=== PATIENT | male | born 1955 | race Caucasian/White ===

== ENCOUNTER → 2021-01-02 | Outpatient (CLI) | payer MEDICARE, OTHER ==
[~2021-01-02] MED LIST: DIATRIZOATE MEGL/DIATRIZOA SOD 120 ML BTL PO ONE
== END ==
LOC: DX 09:22
PROVIDERS: ATTEND Surgery
DX: K57.20 Diverticulitis of large intestine with perforation and abscess without bleeding (principal)
CPT/HCPCS: 74280; Q9963

== ENCOUNTER 2021-01-15 09:16 | Inpatient (IN) | payer MEDICARE, OTHER ==
[2021-01-11 15:51] LABS: BASOPHILS # (AUTO) 0.1 (0.0-0.1); EOSINOPHILS # (AUTO) 0.3 (0.0-0.4); EOSINOPHILS % 2.6 % (0.0-6.0); HEMATOCRIT 30.5 % (38.2-49.6); HEMOGLOBIN 9.8 g/dL (14.0-18.0); LYMPHOCYTES # (AUTO) 2.9 (1.0-3.2); LYMPHOCYTES % 28.1 % (18.0-39.1); MEAN CORPUSCULAR HEMOGLOBIN 31.9 pg (28-32); MEAN CORPUSCULAR HGB CONC 32.1 g/dL (31-35); MEAN CORPUSCULAR VOLUME 99.3 fL (81-99); MONOCYTES % 9.8 % (4.4-11.3); NEUTROPHILS # (AUTO) 5.9 (2.1-6.9); NEUTROPHILS % 57.4 % (38.7-80.0); PLATELET COUNT 271 x10e3/uL (140-360); RED BLOOD COUNT 3.07 x10e6/uL (4.3-5.7); RED CELL DISTRIBUTION WIDTH 16.5 % (11.7-14.4)
[2021-01-11 16:08] LABS: ANION GAP 14.1 mmol/L (8-16); CREATININE, SERUM 1.15 mg/dL (0.72-1.25); POTASSIUM 4.1 mmol/L (3.5-5.1)
[~2021-01-15] VITALS: Ht 167.6 cm; Wt 77.6 kg
[~2021-01-15 09:16] MED LIST changes: -DIATRIZOATE MEGL/DIATRIZOA SOD 120 ML BTL PO ONE; +ELIQUIS2.5 MG PO; +WARFARIN SODIU2.5 MG PO
[2021-01-15] MEDS ORDERED: CEFOXITIN 1GM/0.9% NS 50ML 100 ML IV ONE (10:45)
[2021-01-15] MEDS ORDERED: AMIODARONE HCL200 MG PO (10:52)
[2021-01-15] MEDS ORDERED: PEPCID20 MG PO (10:53)
[2021-01-15] MEDS ORDERED: TYLENOL PM (10:54)
[2021-01-15] MEDS ORDERED: BUPIVACAINE HCL 0.5% INJ 30 ML VIAL INJ ONE (11:02)
[2021-01-15 11:15] LABS: INR 0.95; PROTHROMBIN TIME 13.3 seconds (11.9-14.5)
[2021-01-15 11:16] LABS: PARTIAL THROMBOPLASTIN TIME 28.5 seconds (23.8-35.5)
[2021-01-15] MEDS ORDERED: SEVOFLURANE INHAL SOLN 250 ML PEN BTL ONE (11:45)
[2021-01-15] MEDS ORDERED: DEXAMETHASONE SOD PHOS INJ 4 MG/ML VIAL ONE (11:45)
[2021-01-15] MEDS ORDERED: EPHEDRINE SULFATE INJ 50 MG/ML VIAL ONE (11:45)
[2021-01-15] MEDS ORDERED: PROPOFOL IV EMULSION 10 MG/ML 20 ML VIAL ONE (11:45)
[2021-01-15] MEDS ORDERED: POVIDONE IODINE 0.05% 0.05 % ML PO ONE (11:45)
[2021-01-15] MEDS ORDERED: GLYCOPYRROLATE INJ 0.2 MG/ML VIAL ONE (11:45)
[2021-01-15] MEDS ORDERED: LIDOCAINE HCL 2% LOCAL INJ 5 ML SDV VIAL INJ ONE (11:45)
[2021-01-15] MEDS ORDERED: NEOSTIGMINE 1 MG/ML 10ML VIAL ONE (11:45)
[2021-01-15] MEDS ORDERED: ONDANSETRON HCL INJ 2MG/ML 2ML 2 MG/ML VIAL ONE (11:45)
[2021-01-15] MEDS ORDERED: ROCURONIUM BROMIDE 10 MG/ML 5ML VIAL IV ONE (11:45)
[2021-01-15] MEDS ORDERED: NALOXONE HCL INJ 0.4 MG/ML AMP IV PRN (12:30)
[2021-01-15] MEDS: SODIUM CHLORIDE 0.9% 1000ML 1,000 ML IV SCH ×2 (12:30→22:45)
[2021-01-15] MEDS ORDERED: MORPHINE SULFATE 1 MG/ML 30ML PCA IV PRN (12:30)
[2021-01-15] MEDS ORDERED: DIPHENHYDRAMINE HCL 25 MG CAP PO PRN (12:30)
[2021-01-15] MEDS ORDERED: ACETAMINOPHEN 1000 MG/100 ML IV PRN (12:30)
[2021-01-15] MEDS ORDERED: FENTANYL CITRATE/PF 100MCG/2 ML INJ ONE (12:31)
[2021-01-15] MEDS ORDERED: MIDAZOLAM HCL 2 MG/2 ML VIAL ONE (12:31)
[2021-01-15 14:18] VITALS: BP 142/80
[2021-01-15 14:34] VITALS: BP 142/80
[2021-01-15 14:43] VITALS: BP 142/80
[2021-01-15 15:49] VITALS: BP 133/80
[2021-01-15] MEDS: FAMOTIDINE 20 MG TAB PO SCH (17:22)
[2021-01-15 20:00] VITALS: BP 37/75
[2021-01-15] MEDS: MELATONIN 3 MG TAB PO PRN (22:40)
[2021-01-16] VITALS: BP 111/70
[2021-01-16 04:00] VITALS: BP 123/75
[2021-01-16 05:00] LABS: BASOPHILS # (AUTO) 0.1 (0.0-0.1); BASOPHILS % 0.3 % (0.0-1.0); HEMATOCRIT 29.8 % (38.2-49.6); HEMOGLOBIN 9.9 g/dL (14.0-18.0); LYMPHOCYTES # (AUTO) 1.9 (1.0-3.2); LYMPHOCYTES % 13.3 % (18.0-39.1); MEAN CORPUSCULAR HEMOGLOBIN 32.9 pg (28-32); MEAN CORPUSCULAR HGB CONC 33.2 g/dL (31-35); MONOCYTES % 6.9 % (4.4-11.3); NEUTROPHILS # (AUTO) 11.4 (2.1-6.9); NEUTROPHILS % 78.7 % (38.7-80.0); PLATELET COUNT 234 x10e3/uL (140-360); RED BLOOD COUNT 3.01 x10e6/uL (4.3-5.7); RED CELL DISTRIBUTION WIDTH 16.4 % (11.7-14.4)
[2021-01-16 05:33] LABS: ANION GAP 12.5 mmol/L (8-16); CALCIUM 8.4 mg/dL (8.4-10.2); CREATININE, SERUM 0.94 mg/dL (0.72-1.25); POTASSIUM 4.5 mmol/L (3.5-5.1)
[2021-01-16 08:27] VITALS: BP 118/69
[2021-01-16] MEDS: FAMOTIDINE 20 MG TAB PO SCH ×2 (08:30→16:28)
[2021-01-16 08:44] VITALS: BP 118/69
[2021-01-16] MEDS: AMIODARONE HCL 200 MG TAB PO SCH (09:00)
[2021-01-16 13:43] VITALS: BP 115/69
[2021-01-16] MEDS: HYDROCODONE/APAP 5MG-325MG TAB PO PRN (15:29)
[2021-01-16] MEDS: SODIUM CHLORIDE 0.9% 1000ML 1,000 ML IV SCH ×2 (16:20→16:32)
[2021-01-16] MEDS: ONDANSETRON HCL INJ 2MG/ML 2ML 2 MG/ML VIAL IV PRN (16:25)
[2021-01-16 16:42] VITALS: BP 116/67
[2021-01-16] MEDS: KETOROLAC TROMETHAMINE 30 MG/ML VIAL IV PRN (17:55)
[2021-01-16] MEDS: MELATONIN 3 MG TAB PO PRN (23:05)
[2021-01-17] MEDS: ONDANSETRON HCL INJ 2MG/ML 2ML 2 MG/ML VIAL IV PRN ×2 (00:15→06:17)
[2021-01-17] MEDS: KETOROLAC TROMETHAMINE 30 MG/ML VIAL IV PRN ×2 (02:00→08:35)
[2021-01-17 04:00] VITALS: BP 120/73
[2021-01-17] MEDS: SODIUM CHLORIDE 0.9% 1000ML 1,000 ML IV SCH ×2 (06:30→22:27)
[2021-01-17] MEDS: FAMOTIDINE 20 MG TAB PO SCH ×2 (07:30→16:30)
[2021-01-17 08:38] VITALS: BP 120/73
[2021-01-17] MEDS: AMIODARONE HCL 200 MG TAB PO SCH (09:00)
[2021-01-17 09:40] VITALS: BP 157/87
[2021-01-17 13:35] VITALS: BP 133/83
[2021-01-17 16:33] VITALS: BP 136/83
[2021-01-17] MEDS: MORPHINE SULFATE INJ 4 MG/ML INJ 1ML IV PRN ×2 (18:36→22:54)
[2021-01-17 20:25] VITALS: BP 145/92
[2021-01-18] VITALS (8 sets, daily range): BP systolic 123–152; BP diastolic 84–96
[2021-01-18] MEDS: SODIUM CHLORIDE 0.9% 1000ML 1,000 ML IV SCH ×3 (02:14→16:28)
[2021-01-18] MEDS: FAMOTIDINE 20 MG TAB PO SCH ×2 (04:00→16:28)
[2021-01-18] MEDS: HYDROCODONE/APAP 5MG-325MG TAB PO PRN ×2 (04:15→18:40)
[2021-01-18] MEDS: AMIODARONE HCL 200 MG TAB PO SCH (09:00)
[2021-01-18] MEDS: MORPHINE SULFATE INJ 4 MG/ML INJ 1ML IV PRN (22:29)
[2021-01-19] VITALS (8 sets, daily range): BP systolic 138–147; BP diastolic 79–88
[2021-01-19] MEDS: ONDANSETRON HCL INJ 2MG/ML 2ML 2 MG/ML VIAL IV PRN ×2 (04:14→13:20)
[2021-01-19] MEDS: MORPHINE SULFATE INJ 4 MG/ML INJ 1ML IV PRN ×3 (04:14→20:09)
[2021-01-19] MEDS: SIMETHICONE 80 MG CHEW PO PRN (04:46)
[2021-01-19] MEDS: FAMOTIDINE 20 MG TAB PO SCH ×2 (07:30→16:30)
[2021-01-19] MEDS: AMIODARONE HCL 200 MG TAB PO SCH (08:56)
[2021-01-19] MEDS: SODIUM CHLORIDE 0.9% 1000ML 1,000 ML IV SCH ×2 (10:36→18:30)
[2021-01-19] MEDS: HYDROCODONE/APAP 5MG-325MG TAB PO PRN (17:17)
[2021-01-20] VITALS (7 sets, daily range): BP systolic 118–146; BP diastolic 76–84
[2021-01-20] MEDS: FAMOTIDINE 20 MG TAB PO SCH ×2 (07:30→15:59)
[2021-01-20] MEDS: AMIODARONE HCL 200 MG TAB PO SCH (07:50)
[2021-01-20] MEDS: SODIUM CHLORIDE 0.9% 1000ML 1,000 ML IV SCH (09:09)
[2021-01-20 11:03] LABS: BASOPHILS % 0.2 % (0.0-1.0); EOSINOPHILS % 0.3 % (0.0-6.0); HEMATOCRIT 29.2 % (38.2-49.6); HEMOGLOBIN 9.6 g/dL (14.0-18.0); LYMPHOCYTES # (AUTO) 1.4 (1.0-3.2); LYMPHOCYTES % 23.5 % (18.0-39.1); MEAN CORPUSCULAR HEMOGLOBIN 32.1 pg (28-32); MEAN CORPUSCULAR HGB CONC 32.9 g/dL (31-35); MEAN CORPUSCULAR VOLUME 97.7 fL (81-99); MONOCYTES # (AUTO) 0.6 (0.2-0.8); MONOCYTES % 10.6 % (4.4-11.3); NEUTROPHILS # (AUTO) 3.8 (2.1-6.9); NEUTROPHILS % 65.1 % (38.7-80.0); PLATELET COUNT 216 x10e3/uL (140-360); RED BLOOD COUNT 2.99 x10e6/uL (4.3-5.7); RED CELL DISTRIBUTION WIDTH 15.9 % (11.7-14.4)
[2021-01-20 11:26] LABS: ANION GAP 12.6 mmol/L (8-16); CALCIUM 8.2 mg/dL (8.4-10.2); CREATININE, SERUM 0.8 mg/dL (0.72-1.25)
[2021-01-20 11:29] LABS: POTASSIUM 2.6 mmol/L (3.5-5.1)
[2021-01-20 11:44] LABS: BAND NEUTROPHILS % (MANUAL) 1 %; LYMPHOCYTES % (MANUAL) 22 % (19-48); MONOCYTES % (MANUAL) 3 % (3.4-9.0); NEUTROPHILS % (MANUAL) 74 % (40-74); NUCLEATED RED BLOOD CELLS 1; PLATELET ESTIMATE ADEQUATE; PLATELET MORPHOLOGY COMMENT NORMAL; RBC MORPHOLOGY COMMENT NORMAL
[2021-01-20] MEDS ORDERED: POTASSIUM CHLORIDE 20 MEQ TAB CR PO NR (12:00)
[2021-01-20] MEDS: ONDANSETRON HCL INJ 2MG/ML 2ML 2 MG/ML VIAL IV PRN (12:21)
[2021-01-20] MEDS: MORPHINE SULFATE INJ 4 MG/ML INJ 1ML IV PRN (12:21)
[2021-01-20] MEDS: D5.45%NS/KCL 20MEQ 1,000 ML IV SCH ×2 (12:27→21:44)
[2021-01-20] MEDS: MELATONIN 3 MG TAB PO PRN (21:41)
[2021-01-21] VITALS (9 sets, daily range): BP systolic 118–144; BP diastolic 66–84
[2021-01-21] MEDS: ONDANSETRON HCL INJ 2MG/ML 2ML 2 MG/ML VIAL IV PRN
[2021-01-21] MEDS: MORPHINE SULFATE INJ 4 MG/ML INJ 1ML IV PRN
[2021-01-21] MEDS ORDERED: POTASSIUM CHLORIDE 20MEQ/100ML 200 ML IV ONE (06:30)
[2021-01-21] MEDS: AMIODARONE HCL 200 MG TAB PO SCH (09:00)
[2021-01-21] MEDS: FAMOTIDINE 20 MG TAB PO SCH ×2 (09:34→16:48)
[2021-01-21] MEDS: D5.45%NS/KCL 20MEQ 1,000 ML IV SCH ×2 (11:29→22:06)
[2021-01-21] MEDS: HYDROCODONE/APAP 5MG-325MG TAB PO PRN ×2 (14:49→21:45)
[2021-01-21] MEDS: MELATONIN 3 MG TAB PO PRN (21:30)
[2021-01-22] VITALS (7 sets, daily range): BP systolic 128–141; BP diastolic 71–81
[2021-01-22] MEDS: ONDANSETRON HCL INJ 2MG/ML 2ML 2 MG/ML VIAL IV PRN ×2 (01:30→23:00)
[2021-01-22] MEDS: MORPHINE SULFATE INJ 4 MG/ML INJ 1ML IV PRN ×2 (01:30→23:00)
[2021-01-22 05:21] LABS: ANION GAP 12.6 mmol/L (8-16); CALCIUM 7.7 mg/dL (8.4-10.2); CREATININE, SERUM 0.78 mg/dL (0.72-1.25)
[2021-01-22 05:33] LABS: POTASSIUM 2.6 mmol/L (3.5-5.1)
[2021-01-22] MEDS ORDERED: POTASSIUM CHLORIDE 20MEQ/100ML 200 ML IV ONE (06:45)
[2021-01-22] MEDS: AMIODARONE HCL 200 MG TAB PO SCH (08:07)
[2021-01-22] MEDS: FAMOTIDINE 20 MG TAB PO SCH ×2 (08:07→17:02)
[2021-01-22] MEDS: KCL 20 MEQ PACKET/ ORAL SOLN PO SCH (08:56)
[2021-01-22] MEDS ORDERED: SODIUM CHLORIDE 0.9% 1000ML 1,000 ML ONE (09:21)
[2021-01-22] MEDS: HYDROCODONE/APAP 5MG-325MG TAB PO PRN ×2 (12:02→18:38)
[2021-01-22] MEDS: SIMETHICONE 80 MG CHEW PO PRN (17:02)
[2021-01-22] MEDS: D5.45%NS/KCL 20MEQ 1,000 ML IV SCH (22:45)
[2021-01-22] MEDS: MELATONIN 3 MG TAB PO PRN (23:45)
[2021-01-23] VITALS (7 sets, daily range): BP systolic 104–140; BP diastolic 61–85
[2021-01-23 05:19] LABS: ANION GAP 9.6 mmol/L (8-16); CALCIUM 7.7 mg/dL (8.4-10.2); CREATININE, SERUM 0.81 mg/dL (0.72-1.25)
[2021-01-23 05:28] LABS: POTASSIUM 2.6 mmol/L (3.5-5.1)
[2021-01-23] MEDS: SIMETHICONE 80 MG CHEW PO PRN ×2 (06:02→12:02)
[2021-01-23] MEDS: Vancomycin IV 1 GM in SODIUM CHLORIDE 0.9% 250ML 250 ML IV SCH ×2 (07:02→17:23)
[2021-01-23] MEDS ORDERED: SODIUM CHLORIDE 0.9% 0 ML ONE (07:49)
[2021-01-23] MEDS: FAMOTIDINE 20 MG TAB PO SCH ×2 (08:06→17:22)
[2021-01-23] MEDS: AMIODARONE HCL 200 MG TAB PO SCH (08:06)
[2021-01-23] MEDS: KCL 20 MEQ PACKET/ ORAL SOLN PO SCH (08:10)
[2021-01-23] MEDS: POTASSIUM CHLORIDE 10MEQ EA PO SCH ×2 (09:04→17:22)
[2021-01-23] MEDS: CEFEPIME 2 GM in SODIUM CHLORIDE 0.9% 100 ML IV SCH ×2 (09:46→21:42)
[2021-01-23] MEDS: D5.45%NS/KCL 20MEQ 1,000 ML IV SCH (21:52)
[2021-01-23] MEDS: MELATONIN 3 MG TAB PO PRN (21:54)
[2021-01-24] VITALS (7 sets, daily range): BP systolic 108–140; BP diastolic 70–81
[2021-01-24] MEDS: MORPHINE SULFATE INJ 4 MG/ML INJ 1ML IV PRN (00:35)
[2021-01-24 05:30] LABS: HEMATOCRIT 31.1 % (38.2-49.6); HEMOGLOBIN 9.9 g/dL (14.0-18.0); MEAN CORPUSCULAR HEMOGLOBIN 32.6 pg (28-32); MEAN CORPUSCULAR HGB CONC 31.8 g/dL (31-35); MEAN CORPUSCULAR VOLUME 102.3 fL (81-99); PLATELET COUNT 227 x10e3/uL (140-360); RED BLOOD COUNT 3.04 x10e6/uL (4.3-5.7); RED CELL DISTRIBUTION WIDTH 15.7 % (11.7-14.4)
[2021-01-24 05:50] LABS: ANION GAP 11.1 mmol/L (8-16); CALCIUM 7.8 mg/dL (8.4-10.2); CREATININE, SERUM 0.73 mg/dL (0.72-1.25); POTASSIUM 3.1 mmol/L (3.5-5.1)
[2021-01-24] MEDS: Vancomycin IV 1 GM in SODIUM CHLORIDE 0.9% 250ML 250 ML IV SCH ×2 (07:10→18:31)
[2021-01-24 07:20] LABS: BAND NEUTROPHILS % (MANUAL) 1 %; LYMPHOCYTES % (MANUAL) 17 % (19-48); MONOCYTES % (MANUAL) 6 % (3.4-9.0); NEUTROPHILS % (MANUAL) 76 % (40-74); PLATELET ESTIMATE ADEQUATE; PLATELET MORPHOLOGY COMMENT NORMAL; RBC MORPHOLOGY COMMENT NORMAL; TOXIC GRANULATION MODERATE
[2021-01-24] MEDS: FAMOTIDINE 20 MG TAB PO SCH ×2 (08:48→16:38)
[2021-01-24] MEDS: CEFEPIME 2 GM in SODIUM CHLORIDE 0.9% 100 ML IV SCH ×2 (08:48→21:00)
[2021-01-24] MEDS: AMIODARONE HCL 200 MG TAB PO SCH (08:51)
[2021-01-24] MEDS: POTASSIUM CHLORIDE 10MEQ EA PO SCH ×2 (08:51→16:39)
[2021-01-24] MEDS: KCL 20 MEQ PACKET/ ORAL SOLN PO SCH (09:00)
[2021-01-24] MEDS: D5.45%NS/KCL 20MEQ 1,000 ML IV SCH (09:29)
[2021-01-24] MEDS: SIMETHICONE 80 MG CHEW PO PRN (15:32)
[2021-01-24] MEDS: HYDROCODONE/APAP 5MG-325MG TAB PO PRN ×2 (15:32→22:27)
[2021-01-24] MEDS: MELATONIN 3 MG TAB PO PRN (22:26)
[2021-01-25] VITALS (9 sets, daily range): BP systolic 129–146; BP diastolic 72–86
[2021-01-25] MEDS: D5.45%NS/KCL 20MEQ 1,000 ML IV SCH ×2 (05:06→21:10)
[2021-01-25] MEDS: SIMETHICONE 80 MG CHEW PO PRN (05:32)
[2021-01-25] MEDS: Vancomycin IV 1 GM in SODIUM CHLORIDE 0.9% 250ML 250 ML IV SCH ×2 (06:30→17:54)
[2021-01-25] MEDS: AMIODARONE HCL 200 MG TAB PO SCH (08:08)
[2021-01-25] MEDS: FAMOTIDINE 20 MG TAB PO SCH ×2 (08:13→17:54)
[2021-01-25] MEDS: HYDROCODONE/APAP 5MG-325MG TAB PO PRN ×3 (08:13→23:29)
[2021-01-25] MEDS: KCL 20 MEQ PACKET/ ORAL SOLN PO SCH (09:00)
[2021-01-25] MEDS: CEFEPIME 2 GM in SODIUM CHLORIDE 0.9% 100 ML IV SCH ×2 (10:02→21:10)
[2021-01-25] MEDS: MELATONIN 3 MG TAB PO PRN (23:29)
[2021-01-26] VITALS: BP 133/77
[2021-01-26 05:03] VITALS: BP 136/82
[2021-01-26] MEDS ORDERED: HYDROCODON-ACE1 EA11 PO (06:56)
[2021-01-26] MEDS ORDERED: CIPRO500 MG PO (06:56)
[2021-01-26] MEDS: Vancomycin IV 1 GM in SODIUM CHLORIDE 0.9% 250ML 250 ML IV SCH (07:32)
[2021-01-26 08:14] VITALS: BP 127/79
[2021-01-26 09:00] VITALS: BP 127/79
[2021-01-26] MEDS: CEFEPIME 2 GM in SODIUM CHLORIDE 0.9% 100 ML IV SCH (09:00)
[2021-01-26] MEDS: AMIODARONE HCL 200 MG TAB PO SCH (09:00)
[2021-01-26] MEDS: KCL 20 MEQ PACKET/ ORAL SOLN PO SCH (09:00)
[2021-01-26] MEDS: FAMOTIDINE 20 MG TAB PO SCH (09:06)
[2021-01-26 11:51] VITALS: BP 151/84
== END 2021-01-26 13:52 | disposition home or self-care (01) | DRG 330 ==
LOC: OR 09:16 → PACU V 14:31 → MED/SURG 14:40
PROVIDERS: ADMIT Surgery; ATTEND Surgery
PROC: 0DBB0ZZ Excision of Ileum, Open Approach (ICD-10-PCS; 2021-01-15)
PROC: 0W9F0ZZ Drainage of Abdominal Wall, Open Approach (ICD-10-PCS; 2021-01-15)
PROC: 0WQF0ZZ Repair Abdominal Wall, Open Approach (ICD-10-PCS; principal; 2021-01-15 12:30)
DX: Z43.2 Encounter for attention to ileostomy (principal); L02.211 Cutaneous abscess of abdominal wall; K56.7 Ileus, unspecified; L03.311 Cellulitis of abdominal wall; K43.2 Incisional hernia without obstruction or gangrene
CPT/HCPCS: 36415; 71046; 74018; 80048; 80202; 85007; 85025; 85027; 85610; 85730; 87071; 87075; 87186; 87205; 88305; 88307; 93005; 96360; J0692; J1100; J1885; J2001; J2250; J2270; J2405; J2710; J3010; J3370; J3480; J7030; J7050

== ENCOUNTER → 2022-12-22 | Outpatient (CLI) | payer MEDICARE ==
[~2022-12-22] MED LIST changes: +AMIODARONE HCL200 MG PO; +CIPRO500 MG PO; +DIATRIZOATE MEGL/DIATRIZOA SOD 30 ML BTL PO ONE; +HYDROCODON-ACE1 EA11 PO; +IOPAMIDOL 370 MG/ML 100 ML INFUS..BTL INJ ONE; +PEPCID20 MG PO; +TYLENOL PM
[2022-12-22 07:58] LABS: CREATININE, SERUM 0.87 mg/dL (0.72-1.25)
== END ==
LOC: CT 07:01
PROVIDERS: ATTEND Surgery
DX: K43.9 Ventral hernia without obstruction or gangrene (principal)
CPT/HCPCS: 36415; 74177; 82565; 84520; Q9963; Q9967

== ENCOUNTER → 2024-06-10 | Day surgery (SDC) | payer MEDICARE ==
[2024-06-09 11:34] LABS: BASOPHILS # (AUTO) 0.1 (0.0-0.1); BASOPHILS % 0.7 % (0.0-1.0); EOSINOPHILS # (AUTO) 0.2 (0.0-0.4); EOSINOPHILS % 1.5 % (0.0-6.0); HEMATOCRIT 51.4 % (38.2-49.6); HEMOGLOBIN 16.6 g/dL (14.0-18.0); LYMPHOCYTES # (AUTO) 3.1 (1.0-3.2); LYMPHOCYTES % 29.9 % (18.0-39.1); MEAN CORPUSCULAR HEMOGLOBIN 32.7 pg (28-32); MEAN CORPUSCULAR HGB CONC 32.3 g/dL (31-35); MEAN CORPUSCULAR VOLUME 101.2 fL (81-99); MONOCYTES # (AUTO) 1.1 (0.2-0.8); NEUTROPHILS # (AUTO) 5.8 (2.1-6.9); NEUTROPHILS % 56.6 % (38.7-80.0); PLATELET COUNT 204 x10e3/uL (140-360); RED BLOOD COUNT 5.08 x10e6/uL (4.3-5.7); RED CELL DISTRIBUTION WIDTH 13.5 % (11.7-14.4); WHITE BLOOD COUNT 10.27 x10e3/uL (4.8-10.8)
[2024-06-09 11:58] LABS: ALBUMIN 3.9 g/dL (3.5-5.0); ALBUMIN/GLOBULIN RATIO 0.9 (0.8-2.0); ANION GAP 13.2 mmol/L (8-16); BILIRUBIN,TOTAL 0.3 mg/dL (0.2-1.2); CALCIUM 9.5 mg/dL (8.4-10.2); CREATININE, SERUM 1.08 mg/dL (0.72-1.25); POTASSIUM 4.2 mmol/L (3.5-5.1); TOTAL PROTEIN 8.1 g/dL (6.5-8.1)
[~2024-06-10] MED LIST changes: +AMOX TR-K CLV1 EAC1 PO; +AMOX TR-K CLV1 EAC2 PO; -DIATRIZOATE MEGL/DIATRIZOA SOD 30 ML BTL PO ONE; +FENTANYL CITRATE/PF 100MCG/2 ML INJ ONE; -IOPAMIDOL 370 MG/ML 100 ML INFUS..BTL INJ ONE; +LIDOCAINE HCL 2% LOCAL INJ 5 ML SDV VIAL INJ ONE; +ONDANSETRON ODT4 MG PO; +PROPOFOL IV EMULSION 10 MG/ML 20 ML VIAL ONE; +ULTRAM 50MG50 MG PO
[2024-06-10] MEDS: LACTATED RINGER'S 1,000 ML ONE (11:01)
[2024-06-10] MEDS: HYDROCODONE/APAP 7.5MG-325MG 1 EA TAB ONE (14:58)
[2024-06-10 15:00] VITALS: TEMP 97.8
[2024-06-10 15:30] VITALS: BP 133/90; PULSE 63; RESP 18; O2SAT 97
== END | disposition home or self-care (01) ==
LOC: OR 09:19
PROVIDERS: ATTEND Surgery
DX: L92.3 Foreign body granuloma of the skin and subcutaneous tissue (principal); Z18.89 Other specified retained foreign body fragments; J44.9 Chronic obstructive pulmonary disease, unspecified; Z01.810 Encounter for preprocedural cardiovascular examination; Z01.812 Encounter for preprocedural laboratory examination; Z01.818 Encounter for other preprocedural examination; Z87.891 Personal history of nicotine dependence
CPT/HCPCS: 36415; 71046; 80053; 85025; 88304; 93005; J0690; J2003